=== PATIENT | female | born 1995 | race African-American/Black ===

== ENCOUNTER 2023-06-01 10:53 | Inpatient (IN) ==
[2023-06-01] MEDS ORDERED: Buffered Lidocaine 1% SYRIN 1 ml INTRADERM ONE (11:52)
[2023-06-01] MEDS: Lactated Ringers 1000 ml BAG 1,000 ML IV SCH (12:45)
[2023-06-01] MEDS: Lidocaine 1% MPF 5 ML VIAL ONE (12:55)
[2023-06-01] MEDS: ceFOXitin 2 GM IVPREMIX 2 GM/50 ML BAG IVPB ONE (12:56)
[2023-06-01] MEDS: Lactated Ringers 1000 ml BAG 1,000 ML IV ONE (12:56)
[2023-06-01] MEDS: Lidocaine 1% MPF 2 ML VIAL ONE (12:58)
[2023-06-01 13:29] LABS: ABS Eosinophils 0.1 10^3/uL (0.0-0.5); ABS Lymphocytes 2.2 10^3/uL (1.0-4.8); ABS Monocytes 0.5 10^3/uL (0.0-0.9); ABS Neutrophils 3.5 10^3/uL (1.5-7.6); ABS Nucleated RBC 0.01 10^3/ul; Eosinophil % 1.2 %; Hematocrit 35.8 % (35-45); Hemoglobin 11.8 g/dL (11.5-14.3); Lymphocyte % 34.3 %; Mean Corpuscular Hemoglobin 25.2 pg (27-33); Mean Corpuscular Volume 76.4 fL (80-97); Mean Platelet Volume 9.3 fL (7.5-11.2); Nucleated Red Blood Cells % 0.2 %/100WBC (0.0-0.8); Platelet Count 214 10^3/uL (150-450); Red Blood Count 4.68 10^6/uL (3.63-4.92); Red Cell Distribution Width 15.6 % (12-17); White Blood Count 6.3 10^3/uL (3.8-11.8)
[2023-06-01] MEDS: Sodium Citrate/Citric Acid LIQ 15 ML UDC PO ONE (16:32)
[2023-06-01] MEDS ORDERED: fentaNYL 100 mcg/2 ml 50 MCG/ML VIAL IV ONE (17:03)
[2023-06-01] MEDS ORDERED: Morphine PF AMP (0.5MG/ML) 5 MG/10 ML AMP IV ONE (17:03)
[2023-06-01] MEDS ORDERED: Bupivacaine-MPF SPINAL 7.5 MG/ML - 2ML AMP ONE (17:06)
[2023-06-01] MEDS ORDERED: Oxytocin 10 UNITS/ML 1 ML VIAL IV ONE ×2 (17:33)
[2023-06-01] MEDS ORDERED: Acetaminophen IV 1 GM/100ML 1,000 MG/100 ML BAG IV ONE (17:51)
[2023-06-01 18:28] LABS: Urine Benzodiazepine Screen None Detected (None Detect); Urine Cannabinoids Screen None Detected (None Detect); Urine Opiates Screen None Detected (None Detect)
[2023-06-01 18:46] LABS: Urine Appearance Clear; Urine Bilirubin Negative (Negative); Urine Blood Negative (Negative); Urine Color Light-Yellow; Urine Glucose Negative (Negative); Urine Ketones 2+ (Negative); Urine Nitrite Negative (Negative); Urine Protein Negative (Negative); Urine Specific Gravity 1.014 (1.002-1.030); Urine Urobilinogen Negative (Negative)
[2023-06-01] MEDS ORDERED: Witch Hazel PAD JAR TOPICAL PRN (18:53)
[2023-06-01] MEDS ORDERED: Glycerin ADULT 2.4 gm SUPP PR PRN (18:53)
[2023-06-01] MEDS ORDERED: Dibucaine 1% OINT 28.35 GM TUBE PR PRN (18:53)
[2023-06-01] MEDS ORDERED: Lactated Ringers 1000 ml BAG 1,000 ML IV SCH (19:00)
[2023-06-01] MEDS ORDERED: Ondansetron 4 mg VIAL 2 MG/ML 2 ml VIAL IV PRN (19:34)
[2023-06-01] MEDS ORDERED: Naloxone 0.4 mg VIAL 0.4 mg/ml 1 ml VIAL IV PUSH PRN (19:34)
[2023-06-01] MEDS ORDERED: Metoclopramide 5 MG/ML VIAL (10 mg) IV PRN (19:34)
[2023-06-01] MEDS ORDERED: Acetaminophen IV 1 GM/100ML 1,000 MG/100 ML BAG IV PRN (19:34)
[2023-06-01] MEDS: Oxytocin in LR 20,000 MILLI.UNIT/1,000 ML BAG IV SCH (21:01)
[2023-06-02 06:49] LABS: ABS Basophils 0.1 10^3/uL (0.0-0.1); ABS Lymphocytes 1.6 10^3/uL (1.0-4.8); ABS Monocytes 0.7 10^3/uL (0.0-0.9); ABS Neutrophils 11.3 10^3/uL (1.5-7.6); ABS Nucleated RBC 0.01 10^3/ul; Eosinophil % 0.2 %; Hematocrit 30.9 % (35-45); Hemoglobin 10.1 g/dL (11.5-14.3); Lymphocyte % 11.4 %; Mean Corpuscular Hemoglobin 24.9 pg (27-33); Mean Corpuscular Hgb Conc 32.7 g/dL (31-36); Mean Corpuscular Volume 76.2 fL (80-97); Mean Platelet Volume 9.6 fL (7.5-11.2); Nucleated Red Blood Cells % 0.1 %/100WBC (0.0-0.8); Platelet Count 188 10^3/uL (150-450); Red Blood Count 4.05 10^6/uL (3.63-4.92); Red Cell Distribution Width 14.9 % (12-17); White Blood Count 13.7 10^3/uL (3.8-11.8)
[2023-06-03 08:09] VITALS: BP 124/84
== END 2023-06-03 16:25 | disposition home or self-care (01) | DRG 540 ==
LOC: MCHOBOUT 10:53 → MCHOB 11:51
PROVIDERS: ADMIT Obstetrics & Gynecology; ATTEND Obstetrics & Gynecology